=== PATIENT | female | born 1970 | race Two or more races ===

== ENCOUNTER 2017-03-09 07:37 | Outpatient (CLI) | payer OTHER ==
[~2017-03-09 07:37] MED LIST: HYZAAR 100-121 UDTAB
== END 2017-03-09 07:54 | disposition home or self-care (01) ==
LOC: SONOGRAMA 07:37 → MAMO-SONO 07:45 → SONOGRAMA 07:54
DX: E04.2 Nontoxic multinodular goiter (principal)

== ENCOUNTER 2017-07-04 08:53 | Outpatient (CLI) | payer OTHER | END 2017-07-04 09:14 | disposition home or self-care (01) | LOC: MRI 08:53 | DX: M54.5 Low back pain (principal); M94.261 Chondromalacia, right knee | CPT/HCPCS: 73718 ==

== ENCOUNTER 2017-12-14 08:24 | Outpatient (CLI) | payer OTHER | END 2017-12-14 10:10 | disposition home or self-care (01) | LOC: MAMO-SONO 08:24 | DX: Z12.31 Encounter for screening mammogram for malignant neoplasm of breast (principal) ==

== ENCOUNTER → 2018-12-17 | Outpatient (CLI) | payer OTHER | END | disposition home or self-care (01) | LOC: MAMO-SONO 07:45 | DX: Z12.31 Encounter for screening mammogram for malignant neoplasm of breast (principal); Z87.898 Personal history of other specified conditions ==

== ENCOUNTER 2019-08-20 07:15 | Outpatient (CLI) | payer OTHER | END 2019-08-20 07:25 | disposition home or self-care (01) | LOC: SONOGRAMA 07:15 | PROVIDERS: ATTEND Internal Medicine Gastroenterology | DX: K59.09 Other constipation (principal); K30 Functional dyspepsia; R11.0 Nausea; R11.2 Nausea with vomiting, unspecified ==

== ENCOUNTER 2019-10-07 09:09 | Outpatient (CLI) | payer OTHER | END 2019-10-07 09:21 | disposition home or self-care (01) | LOC: NUCLEAR 09:09 | PROVIDERS: ATTEND Internal Medicine Gastroenterology | DX: R10.11 Right upper quadrant pain (principal); K81.9 Cholecystitis, unspecified | CPT/HCPCS: 78227; A9537; J2805 ==

== ENCOUNTER 2019-10-09 07:35 | Outpatient (CLI) | payer OTHER | END 2019-10-09 07:51 | disposition home or self-care (01) | LOC: RAD 07:35 | DX: R05 Cough (principal); R50.9 Fever, unspecified ==

== ENCOUNTER 2019-12-22 07:24 | Outpatient (CLI) | payer OTHER | END 2019-12-22 07:38 | disposition home or self-care (01) | LOC: MAMO-SONO 07:24 | DX: Z12.31 Encounter for screening mammogram for malignant neoplasm of breast (principal) ==

== ENCOUNTER 2020-02-18 05:10 | Day surgery (SDC) | payer OTHER ==
[~2020-02-18 05:10] MED LIST changes: +LEVO-T50 MCG PO; +LOSARTAN-HCTZ1 EAC2 PO; +PROTONIX20 MG PO
[2020-02-18] MEDS ORDERED: NEURONTIN600 M1 PO (09:45)
[2020-02-18] MEDS ORDERED: PERCOCET 5-3251 EACH PO (09:45)
== END 2020-02-18 13:00 | disposition home or self-care (01) ==
LOC: CIR.AMB 05:10
PROVIDERS: ATTEND Surgery
DX: K80.10 Calculus of gallbladder with chronic cholecystitis without obstruction (principal); Z20.828 Contact with and (suspected) exposure to other viral communicable diseases

== ENCOUNTER 2022-12-27 10:53 | Outpatient (CLI) | payer OTHER ==
[~2022-12-27 10:53] MED LIST changes: +NEURONTIN600 M1 PO; +PERCOCET 5-3251 EACH PO
== END 2022-12-27 11:10 | disposition home or self-care (01) ==
LOC: MAMO-SONO 10:53
DX: Z12.31 Encounter for screening mammogram for malignant neoplasm of breast (principal); E04.1 Nontoxic single thyroid nodule